=== PATIENT | female | born 1955 | race Caucasian/White ===

== ENCOUNTER 2016-10-18 14:01 | Emergency (ER) | payer OTHER ==
[2016-10-18] MEDS ORDERED: Albuterol-Ipratrop 3 mg / 0.5 (3 ml) UD ONE (14:11)
[2016-10-18 14:18] VITALS: TEMP 98.3
[2016-10-18] MEDS ORDERED: Albuterol-Ipratrop 3 mg / 0.5 (3 ml) UD INH STA ×2 (14:30→14:44)
[2016-10-18 14:41] LABS: BASO % 0.2 % (0.0-2.0); EOS % 0.3 % (0.0-4.0); HEMATOCRIT 37.5 % (34.0-47.0); LYMPH # 1.7 K/uL (1.0-4.3); LYMPH % 19.7 % (20.0-40.0); MEAN CELL VOLUME 84.5 fL (81.0-99.0); MEAN CORPUSCULAR HEMOGLOBIN 28.2 pg (27.0-31.0); MEAN CORPUSCULAR HGB CONC 33.4 g/dL (33.0-37.0); MONO # 0.1 K/uL (0.0-0.8); MONO % 1.4 % (0.0-10.0); RED CELL DISTRIBUTION WIDTH 13.2 % (11.5-14.5); WHITE BLOOD COUNT 8.7 K/uL (4.8-10.8)
[2016-10-18] MEDS ORDERED: Albuterol 0.083% Inhal Sol (2.5 mg/3 mL) UD IH STA ×2 (14:44→14:45)
[2016-10-18] MEDS ORDERED: Albuterol 0.083% Inhal Sol (2.5 mg/3 mL) UD ONE (14:48)
[2016-10-18 14:57] LABS: CHLORIDE 103 mmol/L (98-107); POTASSIUM 3.4 mmol/L (3.6-5.2); SODIUM 144 mmol/L (132-148)
[2016-10-18 14:59] LABS: ALB/GLOB RATIO 1.5 (1.0-2.1); ALKALINE PHOSPHATASE 91 U/L (38-126); AST/SGOT 27 U/L (14-36); BILIRUBIN,TOTAL 0.6 mg/dL (0.2-1.3); CARBON DIOXIDE 25 mmol/L (22-30); GFR AFRICAN-AMERICAN > 60
[2016-10-18 15:00] LABS: ALT/SGPT 24 U/L (9-52); BLOOD UREA NITROGEN 13 mg/dL (7-17); CALCIUM 9.4 mg/dl (8.6-10.4); GLUCOSE,RANDOM 122 mg/dL (65-105)
--- NOTE | 2016-10-18 15:13 | RAD ---
PROCEDURE: CHEST RADIOGRAPH, 1 VIEW HISTORY: SOB COMPARISON: Comparison is made to the previous study dated 01/15/2015 FINDINGS: LUNGS: No significant interval change in the lungs since the previous exam noted. PLEURA: No pneumothorax or pleural fluid seen. CARDIOVASCULAR: Normal. OSSEOUS STRUCTURES: No significant abnormalities. VISUALIZED UPPER ABDOMEN: Normal. OTHER FINDINGS: None. IMPRESSION: No significant interval change.
[2016-10-18] MEDS ORDERED: Potassium Chloride 20 mEq ER Tab PO STA (15:48)
--- NOTE | 2016-10-18 16:10 | C.PDOC ---
History Of Present Illness 61-year-old female with PMHx of Hypercholesterolemia, COPD/Asthma presents to the emergency department with complaints of shortness of breath, wheezing and a productive cough with yellow sputum for the past several days. Patient denies fevers, chest pain, dizziness, palpiations, back pain. Time Seen by Provider: 10/18/16 14:15 Chief Complaint (Nursing): Shortness Of Breath History Per: Patient History/Exam Limitations: no limitations Onset/Duration Of Symptoms: Days Current Symptoms Are (Timing): Still Present Current Respiratory Medications: See Home Med List Severity: Mild Past Medical History Reviewed: Historical Data, Nursing Documentation, Vital Signs Vital Signs: Last Vital Signs Temp 98.3 F 10/18/16 14:15 Pulse 92 H 10/18/16 17:35 Resp 18 10/18/16 17:35 BP 121/60 10/18/16 17:35 Pulse Ox 98 10/18/16 19:08 - Medical History PMH: Asthma, COPD, Hypercholesterolemia - [facility] Procedures PHYSICAL THERAPY [facility] (04/22/14) Family History: States: No Known Family Hx - Social History Hx Tobacco Use: No Hx Alcohol Use: No Hx Substance Use: No - Immunization History Hx Tetanus Toxoid Vaccination: No Hx Influenza Vaccination: No Hx Pneumococcal Vaccination: No Review Of Systems Except As Marked, All Systems Reviewed And Found Negative. Constitutional: Negative for: Fever, Chills Cardiovascular: Negative for: Chest Pain, Palpitations Respiratory: Positive for: Cough, Shortness of Breath, Sputum, Wheezing Gastrointestinal: Negative for: Nausea, Vomiting, Abdominal Pain, Diarrhea Skin: Negative for: Rash Physical Exam - Physical Exam Appears: Well, Non-toxic, No Acute Distress Skin: Warm, Dry, No Rash Head: Normacephalic Eye(s): bilateral: Normal Inspection Oral Mucosa: Moist Neck: Normal, Normal ROM Cardiovascular: Rhythm Regular (Tachycardic) Respiratory: Accessory Muscle Use (mild), No Rales, No Rhonchi, Wheezing ( expiratory B/L), Other (Mild respiratory distress) Gastrointestinal/Abdominal: Normal Exam, Bowel Sounds, Soft, No Tenderness Extremity: Normal ROM, No Pedal Edema, No Calf Tenderness, No Deformity Pulses: Left Dorsalis Pedis: Normal, Right Dorsalis Pedis: Normal Neurological/Psych: Oriented x3 ED Course And Treatment - Laboratory Results Result Diagrams: 10/18/16 14:36 10/18/16 14:36 ECG: Interpreted By Me, Viewed By Me (NSR 97 bpm, normal axis, no acute ST/T wave changes) ECG Interpretation: No Acute Changes Rate From EC O2 Sat by Pulse Oximetry: 98 (RA) - Radiology CXR: Interpreted by Me, Viewed By Me CXR Interpretation: Yes: No Acute Disease Progress Note: Blood work, EKG, Chest X-ray ordered and reviewed. Patient given IV solumedrol and duoneb treatments. Reevaluation Time: 17:20 Reassessment Condition: Improved (Patient reassessed, she states she is feeling much better. On exam, she has good air entry B/L without wheezing or accessory muscle use. CXR, EKG and blood work unremarkable. Patient is well appearing, has normal vitals, and is comfortable being discharged home. She was given Rxs for prednisone, tessalno perles (already has albuterol). Patient instructed to follow up with PMD/clinic in 1-2 days, and she understands she should return to ED if symptoms worsen.) Disposition Counseled Patient/Family Regarding: Studies Performed, Diagnosis, Need For Followup, Rx Given - Disposition Referrals: Graciela Szymanski MD [Medical Doctor] - Disposition: HOME/ ROUTINE Disposition Time: 17:20 Condition: STABLE Additional Instructions: SEGUIMIENTO CON KWON MDICO EN 1-2 TEJEDA USE MEDICAMENTOS SEGN LO DIRIGIDO DEVUELVA A LA JAYSON DE EMERGENCIA SI LOS SNTOMAS EMPEORARAN Prescriptions: Benzonatate [Tessalon Perles] 100 mg PO BID PRN #15 sgl PRN Reason: Cough predniSONE [predniSONE Tab] 40 mg PO DAILY #6 tab Instructions: COPD (Chronic Obstructive Pulmonary Disease) (ED) Print Language: FAROESE - Clinical Impression Clinical Impression: COPD exacerbation - Scribe Statement The provider has reviewed the documentation as recorded by the Caroibjen Cristina All medical record entries made by the Scribe were at my direction and personally dictated by me. I have reviewed the chart and agree that the record accurately reflects my personal performance of the history, physical exam, medical decision making, and the department course for this patient. I have also personally directed, reviewed, and agree with the discharge instructions and disposition.
[2016-10-18] MEDS ORDERED: Potassium Chloride 20 mEq ER Tab PO ONE (16:55)
[2016-10-18 17:35] VITALS: BP 121/60; PULSE 92; RESP 18
[2016-10-18 19:09] VITALS: O2SAT 98
--- NOTE | 2016-10-23 10:12 | CARD ---
APPROVED REPORT EKG Measurement Heart [id number] <Conclusion> Normal sinus rhythm Moderate voltage criteria for LVH, may be normal variant Borderline ECG
== END 2016-10-18 17:36 | disposition home or self-care (01) ==
LOC: C.ER 14:01
DX: J44.1 Chronic obstructive pulmonary disease with (acute) exacerbation (principal)
CPT/HCPCS: 71010; 80053; 82550; 82553; 83880; 84484; 85025; 93005; 96374; 99285; J2930

== ENCOUNTER 2018-02-07 16:04 | Emergency (ER) | payer MEDICAID, OTHER ==
[2018-02-07 16:14] VITALS: TEMP 98.2; O2SAT 98
--- NOTE | 2018-02-07 17:15 | C.PDOC ---
History Of Present Illness 63 y/o female presents to the ER complaining of right shoulder pain which has been present for the past 5 days. Patient states that the pain is aggravated by movement. Patient reports that she has history of wrist tendon surgery 20+ years ago. Since the surgery, she has flexion of 4th finger and decreased sensation. These are not new symptoms , she has no new changes in sensation. Denies having weakness, trauma, CP, and SOB. Time Seen by Provider: 02/07/18 16:31 Chief Complaint (Nursing): Upper Extremity Problem/Injury History Per: Patient History/Exam Limitations: no limitations Onset/Duration Of Symptoms: Days Current Symptoms Are (Timing): Still Present Past Medical History Reviewed: Historical Data, Nursing Documentation, Vital Signs Vital Signs: Last Vital Signs Temp 98.2 F 02/07/18 16:15 Pulse 66 02/07/18 17:50 Resp 18 02/07/18 17:50 BP 150/87 02/07/18 17:50 Pulse Ox 98 02/07/18 17:50 - Medical History PMH: Asthma, COPD, Hypercholesterolemia Other Surgeries: Hx of surgeries - [facility] Procedures [facility] (04/22/14) Family History: States: No Known Family Hx - Social History Hx Tobacco Use: No Hx Alcohol Use: No Hx Substance Use: No - Immunization History Hx Tetanus Toxoid Vaccination: No Hx Influenza Vaccination: No Hx Pneumococcal Vaccination: No Review Of Systems Except As Marked, All Systems Reviewed And Found Negative. Cardiovascular: Negative for: Chest Pain Respiratory: Negative for: Shortness of Breath Musculoskeletal: Positive for: Shoulder Pain (right shoulder pain) Neurological: Negative for: Weakness, Numbness Physical Exam - Physical Exam Appears: Non-toxic, No Acute Distress Skin: Normal Color, Warm, Dry Head: Atraumatic, Normacephalic Eye(s): bilateral: Normal Inspection, EOMI Nose: Normal Oral Mucosa: Moist Neck: Normal ROM, No Midline Cervical Tenderness, No Paracervical Tenderness, Supple, Other (right sided trapezius tenderness) Chest: Symmetrical Cardiovascular: Rhythm Regular Respiratory: Normal Breath Sounds, No Accessory Muscle Use Extremity: Normal ROM, Tenderness (tenderness to anterior and lateral aspect of right shoulder), Capillary Refill (<2 sec), No Swelling Pulses: Left Radial: Normal, Right Radial: Normal Neurological/Psych: Oriented x3, Normal Speech, Normal Motor, Normal Sensation ED Course And Treatment O2 Sat by Pulse Oximetry: 98 (RA) Pulse Ox Interpretation: Normal - Other Rad X-Ray- Right Shoulder X-Ray: Viewed By Me, Read By Radiologist Interpretation: Date of service: 02/07/2018. PROCEDURE: Radiographs of the Right Shoulder. HISTORY: pain. COMPARISON: No prior. FINDINGS: BONES: No fracture. Minimal globular calcification adjacent to the greater tuberosity consistent with calcific tendinitis. JOINTS: Glenohumeral articulation unremarkable. Mild acromioclavicular degenerative arthritis. SOFT TISSUES: Normal. OTHER FINDINGS: None. IMPRESSION: No fracture. Calcific tendinitis. Mild acromioclavicular degenerative arthritis. Progress Note: Patient treated with Flexeril PO and Toradol IM. X -Ray left shoulder ordered and reviewed. Pain has improved. Pt was instructed to follow up with ortho in 1-2 days and RICE. Disposition - Disposition Referrals: Efe Power III, MD [Staff Provider] - Disposition: HOME/ ROUTINE Disposition Time: 17:27 Condition: STABLE Additional Instructions: Vaya a onwak mdico o la clnica en 2-5 moore sin falta, para mas evaluacin. Shiner los medicamentos estuardo indicado. Volver a la tiffanie de emergencia en cualquier momento si los sntomas persisten o empeoran. Prescriptions: Naproxen [Naprosyn] 1 tab PO BID PRN #20 tab PRN Reason: Pain Instructions: Calcific Tendonitis of the Shoulder (DC) Forms: [employer] (Croatian) Print Language: JAMAICAN - Clinical Impression Clinical Impression: Calcific tendinitis of shoulder - PA / UNDER PRESSER / Resident Statement MD/DO has reviewed & agrees with the documentation as recorded. - Scribe Statement The provider has reviewed the documentation as recorded by the iMlo Hinds Provider Attestation All medical record entries made by the Scribe were at my direction and personally dictated by me. I have reviewed the chart and agree that the record accurately reflects my personal performance of the history, physical exam, medical decision making, and the department course for this patient. I have also personally directed, reviewed, and agree with the discharge instructions and disposition.
--- NOTE | 2018-02-07 17:16 | RAD ---
Date of service: 02/07/2018 PROCEDURE: Radiographs of the Right Shoulder HISTORY: pain COMPARISON: No prior. FINDINGS: BONES: No fracture. Minimal globular calcification adjacent to the greater tuberosity consistent with calcific tendinitis. JOINTS: Glenohumeral articulation unremarkable. Mild acromioclavicular degenerative arthritis. SOFT TISSUES: Normal. OTHER FINDINGS: None. IMPRESSION: No fracture. Calcific tendinitis. Mild acromioclavicular degenerative arthritis.
[2018-02-07 17:51] VITALS: BP 150/87; PULSE 66; RESP 18
== END 2018-02-07 17:51 | disposition home or self-care (01) ==
LOC: C.ER 16:04
DX: M75.31 Calcific tendinitis of right shoulder (principal)
CPT/HCPCS: 73030; 96372; 99284; J1885

== ENCOUNTER 2018-05-03 12:17 | Inpatient (IN) | payer MEDICAID ==
[2018-05-03 12:22] VITALS: BMI 33.2
[2018-05-03] MEDS ORDERED: Albuterol-Ipratrop 3 mg / 0.5 (3 ml) UD ONE ×2 (12:32→14:06)
[2018-05-03] MEDS ORDERED: Albuterol-Ipratrop 3 mg / 0.5 (3 ml) UD INH STA ×3 (12:32→13:50)
[2018-05-03] MEDS ORDERED: MethylPREDNISolone 40 mg Vial IVP STA (12:41)
--- NOTE | 2018-05-03 12:43 | C.PDOC ---
History Of Present Illness 63 yo female, hx of asthma/copd, presnets with sob/wheezing. symptoms x 1 day. no fevers, mild cough, no other complaints. Time Seen by Provider: 05/03/18 12:37 Chief Complaint (Nursing): Respiratory Distress Past Medical History Reviewed: Historical Data, Nursing Documentation, Vital Signs Vital Signs: Last Vital Signs Temp 98.6 F 05/03/18 12:22 Pulse 101 H 05/03/18 12:22 Resp 24 05/03/18 12:22 BP 182/93 H 05/03/18 12:22 Pulse Ox 93 L 05/03/18 12:22 - Medical History PMH: Asthma, COPD, Hypercholesterolemia - [facility] Procedures PHYSICAL THERAPY [facility] (04/22/14) Family History: States: Unknown Family Hx - Social History Hx Tobacco Use: No Hx Alcohol Use: No Hx Substance Use: No - Immunization History Hx Tetanus Toxoid Vaccination: No Hx Influenza Vaccination: No Hx Pneumococcal Vaccination: No Review Of Systems Respiratory: Positive for: Cough Physical Exam - Physical Exam Appears: Well, No Acute Distress Skin: Normal Color, Warm, Dry Eye(s): bilateral: Normal Inspection, PERRL, EOMI Nose: Normal Throat: Normal Neck: Normal Cardiovascular: Rhythm Regular Respiratory: Normal Breath Sounds, Rhonchi, Wheezing Gastrointestinal/Abdominal: Normal Exam Back: Normal Inspection Extremity: Normal ROM ED Course And Treatment - Laboratory Results Result Diagrams: 05/03/18 13:23 05/03/18 13:23 ECG: Interpreted By Me, Viewed By Me ECG Rhythm: Sinus Rhythm Interpretation Of ECG: Normal Sinus Rhythm at rate 90bpm. No ST/T wave changes. Rate From EC O2 Sat by Pulse Oximetry: 93 Medical Decision Making Medical Decision Making: asthma - nebs steriod cxr reassess pt obsevered several hours perisitent wheezing accepted bedside by dr jeny luo. Disposition - Disposition Disposition: HOSPITALIZED Disposition Time: 14:50 Condition: STABLE - Clinical Impression Clinical Impression: Exacerbation of asthma Decision To Admit - Pt Status Changed To: Hospital Disposition Of: Inpatient - Admit Certification Admit to Inpatient:: After my assessment, the patient will require hospitalization for at least two midnights. This is because of the severity of symptoms shown, intensity of services needed, and/or the medical risk in this patient being treated as an outpatient. - InPatient: Physician Admission Certification: I certify that this patient requires 2 or more midnights of care for the following reason:: asthma perisstnet wheezing, hypoxic - . Bed Request Type: Telemetry Admitting Physician: Steffany Luo Patient Diagnosis: Exacerbation of asthma
--- NOTE | 2018-05-03 13:23 | RAD ---
Date of service: 05/03/2018 HISTORY: SOB COMPARISON: Comparison chest 10/18/16. TECHNIQUE: Chest PA and lateral FINDINGS: LUNGS: Poor inspiration with low lung volumes, crowded bronchovascular markings and mild bibasilar atelectasis. PLEURA: No significant pleural effusion identified. No pneumothorax apparent. CARDIOVASCULAR: Normal. Mild aortic atherosclerotic calcification present. Heart size is upper limits of normal in size. No pulmonary vascular congestion. OSSEOUS STRUCTURES: Mild multilevel degenerative spondylosis of the thoracic spine VISUALIZED UPPER ABDOMEN: Normal. OTHER FINDINGS: None. IMPRESSION: Poor inspiration with low lung volumes, crowded bronchovascular markings and mild bibasilar atelectasis.
[2018-05-03 13:33] LABS: BASO % 0.5 % (0.0-2.0); EOS # 0.2 K/uL (0.0-0.7); EOS % 4.5 % (0.0-4.0); HEMOGLOBIN 11.3 g/dL (11.0-16.0); LYMPH # 2.2 K/uL (1.0-4.3); LYMPH % 50.5 % (20.0-40.0); MEAN CELL VOLUME 85.5 fL (81.0-99.0); MEAN CORPUSCULAR HEMOGLOBIN 28.8 pg (27.0-31.0); MEAN CORPUSCULAR HGB CONC 33.7 g/dL (33.0-37.0); MEAN PLATELET VOLUME 8.1 fL (7.2-11.7); MONO # 0.4 K/uL (0.0-0.8); MONO % 9.2 % (0.0-10.0); NEUT # 1.5 K/uL (1.8-7.0); NEUT % 35.3 % (50.0-75.0); RBC 3.93 Mil/uL (3.80-5.20); RED CELL DISTRIBUTION WIDTH 13.4 % (11.5-14.5); WHITE BLOOD COUNT 4.3 K/uL (4.8-10.8)
[2018-05-03 13:38] LABS: PROTHROMBIN TIME 11.2 SECONDS (9.7-12.2)
[2018-05-03 13:46] LABS: ALB/GLOB RATIO 1.4 (1.0-2.1); ALBUMIN 4.1 g/dL (3.5-5.0); ALT/SGPT 26 U/L (9-52); AST/SGOT 25 U/L (14-36); BLOOD UREA NITROGEN 12 mg/dL (7-17); CALCIUM 9.1 mg/dl (8.6-10.4); GFR NON-AFRICAN AMERICAN > 60
[2018-05-03] MEDS ORDERED: Potassium Chloride 20 mEq ER Tab PO STA (13:47)
[2018-05-03] MEDS ORDERED: Potassium Chloride 10 mEq ER Tab PO ONE ×2 (14:07→14:09)
[2018-05-03 15:01] VITALS: RESP 20
[2018-05-03] MEDS ORDERED: guaiFENesin 100 mg/5 ml Syrup UD PO PRN (17:14)
[2018-05-03] MEDS: MethylPREDNISolone 40 mg Vial IVP SCH (17:33)
[2018-05-03] MEDS ORDERED: Oxycodone/Acetaminophen 5/325 mg Tab PO PRN (18:35)
[2018-05-03] MEDS ORDERED: Naproxen 275 mg Tab PO PRN (18:35)
--- NOTE | 2018-05-03 18:35 | CP.PCM.PN ---
Subjective - Date & Time of Evaluation Date of Evaluation: 05/03/18 Objective - Vital Signs/Intake and Output Vital Signs (last 24 hours): Temp Pulse Resp BP Pulse Ox 98 F 91 H 20 136/4 L 93 L 05/03/18 15:50 05/03/18 18:00 05/03/18 15:50 05/03/18 15:50 05/03/18 16:08 - Medications Medications: Current Medications Albuterol/Ipratropium (Duoneb 3 Mg/0.5 Mg (3 Ml) Ud) 3 ml INH RQ6 [facility] Guaifenesin (Robitussin) 100 mg PO Q4H PRN PRN Reason: Cough Heparin Sodium (Porcine) (Heparin) 5,000 units SC Q12 [facility] Home Med (Fluticasone/Salmeterol 500/50 [Advair Diskus 500/50]) 1 puff INH RQ12 [facility] Methylprednisolone (Solu-Medrol) 40 mg IVP Q8H [facility] Last Admin: 05/03/18 17:33 Dose: 40 mg Montelukast Sodium (Singulair) 10 mg PO DAILY [facility] Last Admin: 05/03/18 17:33 Dose: 10 mg Rosuvastatin Calcium (Crestor) 20 mg PO HS [facility] - Labs Labs: 05/03/18 13:23 05/03/18 13:23 PT 11.2 SECONDS (9.7-12.2) 05/03/18 13:23 INR 1.0 05/03/18 13:23 APTT 31 SECONDS (21-34) 05/03/18 13:23
[2018-05-03] MEDS: Albuterol-Ipratrop 3 mg / 0.5 (3 ml) UD INH SCH (19:28)
[2018-05-03] MEDS: Azithromycin 500 MG in Sodium Chloride 0.9% 250 ML IVPB SCH (19:35)
[2018-05-03] MEDS ORDERED: SALMETEROL INH SCH (20:00)
[2018-05-03] MEDS ORDERED: FLUTICASONE INH SCH (20:00)
[2018-05-03] MEDS ORDERED: Albuterol-Ipratrop 3 mg / 0.5 (3 ml) UD INH SCH (20:00)
[2018-05-03] MEDS ORDERED: MethylPREDNISolone 40 mg Vial IVP SCH (22:00)
[2018-05-04] MEDS: MethylPREDNISolone 40 mg Vial IVP SCH ×3 (00:16→17:48)
[2018-05-04] MEDS: Albuterol-Ipratrop 3 mg / 0.5 (3 ml) UD INH SCH ×4 (01:13→19:51)
[2018-05-04 07:19] LABS: BASO % 0.2 % (0.0-2.0); HEMOGLOBIN 11.7 g/dL (11.0-16.0); LYMPH # 1.5 K/uL (1.0-4.3); LYMPH % 21.4 % (20.0-40.0); MEAN CELL VOLUME 85.1 fL (81.0-99.0); MEAN PLATELET VOLUME 8.6 fL (7.2-11.7); MONO # 0.1 K/uL (0.0-0.8); MONO % 2.1 % (0.0-10.0); NEUT # 5.2 K/uL (1.8-7.0); NEUT % 76.3 % (50.0-75.0); RBC 4.04 Mil/uL (3.80-5.20); RED CELL DISTRIBUTION WIDTH 13.7 % (11.5-14.5)
[2018-05-04 07:26] LABS: WHITE BLOOD COUNT 6.8 K/uL (4.8-10.8)
[2018-05-04 07:47] LABS: ALB/GLOB RATIO 1.3 (1.0-2.1); ALT/SGPT 17 U/L (9-52); AST/SGOT 23 U/L (14-36); BLOOD UREA NITROGEN 14 mg/dL (7-17); CALCIUM 9.2 mg/dl (8.6-10.4); GFR NON-AFRICAN AMERICAN > 60
--- NOTE | 2018-05-04 15:07 | CP.PCM.HP ---
Past Patient History - Infectious Disease Hx of Infectious Diseases: None - Past Medical History & Family History Past Medical History?: Yes - Past Social History Smoking Status: Never Smoked - CARDIAC Hx Hypercholesterolemia: Yes - PULMONARY Hx Asthma: Yes Hx Chronic Obstructive Pulmonary Disease (COPD): Yes - NEUROLOGICAL Hx Neurological Disorder: No - HEENT Hx HEENT Problems: No - RENAL Hx Chronic Kidney Disease: No - ENDOCRINE/METABOLIC Hx Endocrine Disorders: No - HEMATOLOGICAL/ONCOLOGICAL Hx Blood Disorders: No - INTEGUMENTARY Hx Dermatological Problems: No - MUSCULOSKELETAL/RHEUMATOLOGICAL Hx Musculoskeletal Disorders: Yes Hx Arthritis: Yes Hx Falls: No - GASTROINTESTINAL Hx Gastrointestinal Disorders: No - GENITOURINARY/GYNECOLOGICAL Hx Genitourinary Disorders: No - PSYCHIATRIC Hx Substance Use: No - SURGICAL HISTORY Hx Surgeries: Yes Other/Comment: right hand/arm tendon surgery - ANESTHESIA Hx Anesthesia: Yes Hx Anesthesia Reactions: No Hx Malignant Hyperthermia: No Meds Allergies/Adverse Reactions: Allergies Allergy/AdvReac Type Severity Reaction Status Date / Time No Known Allergies Allergy Verified 02/07/18 16:14 Physical Exam - Constitutional Appears: Well - Head Exam Head Exam: ATRAUMATIC, NORMAL INSPECTION, NORMOCEPHALIC - Eye Exam Eye Exam: EOMI, Normal appearance, PERRL Pupil Exam: NORMAL ACCOMODATION, PERRL - ENT Exam ENT Exam: Mucous Membranes Moist, Normal Exam - Neck Exam Neck exam: Positive for: Normal Inspection - Respiratory Exam Respiratory Exam: Decreased Breath Sounds - Cardiovascular Exam Cardiovascular Exam: REGULAR RHYTHM, +S1, +S2 - GI/Abdominal Exam GI & Abdominal Exam: Diminished Bowel Sounds, Soft - Rectal Exam Rectal Exam: Deferred Results - Vital Signs Recent Vital Signs: Last Vital Signs Temp 97.4 F L 05/04/18 07:38 Pulse 88 05/04/18 12:35 Resp 20 05/04/18 07:38 BP 129/72 05/04/18 07:38 Pulse Ox 96 05/04/18 07:38 - Labs Result Diagrams: 05/04/18 07:11 05/04/18 07:11 Labs: Laboratory Results - last 24 hr 05/04/18 05/04/18 07:11 07:11 WBC 6.8 D RBC 4.04 Hgb 11.7 Hct 34.4 MCV 85.1 MCH 29.0 MCHC 34.0 RDW 13.7 Plt Count 161 MPV 8.6 Neut % (Auto) 76.3 H Lymph % (Auto) 21.4 Briscoe % (Auto) 2.1 Eos % (Auto) 0.0 Baso % (Auto) 0.2 Neut # (Auto) 5.2 Lymph # (Auto) 1.5 [place]iscoe # (Auto) 0.1 Eos # (Auto) 0.0 Baso # (Auto) 0.0 Sodium 142 Potassium 4.2 Chloride 105 Carbon Dioxide 24 Anion Gap 17 BUN 14 Creatinine 0.6 L Est GFR ( Amer) > 60 Est GFR (Non-Af Amer) > 60 Random Glucose 150 H Calcium 9.2 Total Bilirubin 0.3 AST 23 ALT 17 Alkaline Phosphatase 61 Total Protein 7.1 Albumin 4.0 Globulin 3.1 Albumin/Globulin Ratio 1.3
[2018-05-04] MEDS: Azithromycin 500 MG in Sodium Chloride 0.9% 250 ML IVPB SCH (19:25)
[2018-05-05] MEDS: MethylPREDNISolone 40 mg Vial IVP SCH ×3 (00:26→17:39)
[2018-05-05] MEDS: Albuterol-Ipratrop 3 mg / 0.5 (3 ml) UD INH SCH ×4 (01:35→20:48)
--- NOTE | 2018-05-05 12:40 | CP.PCM.PN ---
Subjective - Date & Time of Evaluation Date of Evaluation: 05/05/18 Time of Evaluation: 08:30 - Subjective Subjective: clinically same Objective - Vital Signs/Intake and Output Vital Signs (last 24 hours): Temp Pulse Resp BP Pulse Ox 97.9 F 71 20 128/72 96 05/05/18 07:55 05/05/18 12:16 05/05/18 07:55 05/05/18 07:55 05/05/18 07:55 - Medications Medications: Current Medications Albuterol/Ipratropium (Duoneb 3 Mg/0.5 Mg (3 Ml) Ud) 3 ml INH RQ6 [facility] Last Admin: 05/05/18 08:12 Dose: Not Given Benzonatate (Tessalon Perles) 100 mg PO BID PRN PRN Reason: Cough Diazepam (Valium) 2 mg PO TID [facility] Last Admin: 05/05/18 09:21 Dose: 2 mg Guaifenesin (Robitussin) 100 mg PO Q4H PRN PRN Reason: Cough Heparin Sodium (Porcine) (Heparin) 5,000 units SC Q12 [facility] Last Admin: 05/05/18 09:22 Dose: 5,000 units Home Med (Fluticasone/Salmeterol 500/50 [Advair Diskus 500/50]) 1 puff INH RQ12 [facility] Ceftriaxone Sodium 1 gm/ (Sodium Chloride) 100 mls @ 100 mls/hr IVPB Q24H [facility]; Protocol Last Admin: 05/04/18 19:25 Dose: 100 mls/hr Azithromycin 500 mg/ Sodium (Chloride) 250 mls @ 250 mls/hr IVPB Q24H [facility]; Protocol Last Admin: 05/04/18 19:25 Dose: 250 mls/hr Methylprednisolone (Solu-Medrol) 40 mg IVP Q8H [facility] Last Admin: 05/05/18 09:22 Dose: 40 mg Montelukast Sodium (Singulair) 10 mg PO DAILY [facility] Last Admin: 05/05/18 09:22 Dose: 10 mg Naproxen (Anaprox) 275 mg PO BID PRN PRN Reason: Pain, Mild (1-3) Oxycodone/Acetaminophen (Percocet 5/325 Mg Tab) 1 tab PO QID PRN PRN Reason: Pain, moderate (4-7) Stop: 05/06/18 18:36 Rosuvastatin Calcium (Crestor) 20 mg PO HS [facility] Last Admin: 05/04/18 21:37 Dose: 20 mg - Labs Labs: 05/04/18 07:11 05/04/18 07:11 PT 11.2 SECONDS (9.7-12.2) 05/03/18 13:23 INR 1.0 05/03/18 13:23 APTT 31 SECONDS (21-34) 05/03/18 13:23 - Constitutional Appears: Well - Head Exam Head Exam: ATRAUMATIC, NORMAL INSPECTION, NORMOCEPHALIC - Eye Exam Eye Exam: EOMI, Normal appearance, PERRL Pupil Exam: NORMAL ACCOMODATION, PERRL - ENT Exam ENT Exam: Mucous Membranes Moist, Normal Exam - Neck Exam Neck Exam: Full ROM, Normal Inspection. absent: Lymphadenopathy - Respiratory Exam Respiratory Exam: Decreased Breath Sounds - Cardiovascular Exam Cardiovascular Exam: REGULAR RHYTHM, +S1, +S2 - GI/Abdominal Exam GI & Abdominal Exam: Soft, Diminished Bowel Sounds - Rectal Exam Rectal Exam: Deferred
[2018-05-05] MEDS: Azithromycin 500 MG in Sodium Chloride 0.9% 250 ML IVPB SCH (19:26)
[2018-05-06] MEDS: MethylPREDNISolone 40 mg Vial IVP SCH ×2 (00:15→09:36)
[2018-05-06] MEDS: Albuterol-Ipratrop 3 mg / 0.5 (3 ml) UD INH SCH ×3 (01:50→13:51)
[2018-05-06 08:48] VITALS: TEMP 97.9
--- NOTE | 2018-05-06 13:46 | CP.PCM.PN ---
Subjective - Date & Time of Evaluation Date of Evaluation: 05/06/18 Time of Evaluation: 13:46 - Subjective Subjective: PATIENT SEEN AND EXAMINED AT THE BEDSIDE Objective - Vital Signs/Intake and Output Vital Signs (last 24 hours): Temp Pulse Resp BP Pulse Ox 97.9 F 61 20 128/70 95 05/06/18 08:00 05/06/18 08:03 05/06/18 08:00 05/06/18 08:00 05/06/18 08:00 - Medications Medications: Current Medications Albuterol/Ipratropium (Duoneb 3 Mg/0.5 Mg (3 Ml) Ud) 3 ml INH RQ6 [facility] Last Admin: 05/06/18 08:36 Dose: Not Given Benzonatate (Tessalon Perles) 100 mg PO BID PRN PRN Reason: Cough Diazepam (Valium) 2 mg PO TID [facility] Last Admin: 05/06/18 09:36 Dose: 2 mg Guaifenesin (Robitussin) 100 mg PO Q4H PRN PRN Reason: Cough Heparin Sodium (Porcine) (Heparin) 5,000 units SC Q12 [facility] Last Admin: 05/06/18 09:36 Dose: Not Given Home Med (Fluticasone/Salmeterol 500/50 [Advair Diskus 500/50]) 1 puff INH RQ12 [facility] Ceftriaxone Sodium 1 gm/ (Sodium Chloride) 100 mls @ 100 mls/hr IVPB Q24H [facility]; Protocol Last Admin: 05/05/18 19:27 Dose: 100 mls/hr Azithromycin 500 mg/ Sodium (Chloride) 250 mls @ 250 mls/hr IVPB Q24H [facility]; Protocol Last Admin: 05/05/18 19:26 Dose: 250 mls/hr Methylprednisolone (Solu-Medrol) 40 mg IVP Q12H [facility] Montelukast Sodium (Singulair) 10 mg PO DAILY [facility] Last Admin: 05/06/18 09:36 Dose: 10 mg Naproxen (Anaprox) 275 mg PO BID PRN PRN Reason: Pain, Mild (1-3) Oxycodone/Acetaminophen (Percocet 5/325 Mg Tab) 1 tab PO QID PRN PRN Reason: Pain, moderate (4-7) Stop: 05/06/18 18:36 Rosuvastatin Calcium (Crestor) 20 mg PO HS [facility] Last Admin: 05/05/18 21:10 Dose: 20 mg - Labs Labs: 05/04/18 07:11 05/04/18 07:11 PT 11.2 SECONDS (9.7-12.2) 05/03/18 13:23 INR 1.0 05/03/18 13:23 APTT 31 SECONDS (21-34) 05/03/18 13:23 Assessment and Plan - Assessment and Plan (Free Text) Assessment: FOLLOW UP WITH DR Guerita OWEN IN HIS OFFICE ----CALL FOR APPOINTMENT CONTINUE HOME MEDICATION NEW PRESCRIPTION GIVEN MEDROL DOSE PACK BY MOUTH DAILY DIRECTED AUGMENTIN PO DAILY FOR 5 DAYS FOLRASTOR ONE TAB BY MOUTH DAILY FOR 5 DAYS ACTIVITY TOLERATED CALL DR Guerita OWEN OR GO TO THE EMERGENCY ROOM IF SYMPTOM RETURN OR WORSENING
[2018-05-06] MEDS ORDERED: MethylPREDNISolone 40 mg Vial IVP SCH (17:00)
--- NOTE | 2018-05-06 22:55 | CARD ---
APPROVED REPORT Date of service: 05/04/2018 EKG Measurement Heart [id number] <Conclusion> Normal sinus rhythm Normal ECG
[2018-05-07 00:35] VITALS: BP 120/69; PULSE 69; O2SAT 97
[2018-05-07] MEDS ORDERED: Fluticasone-Vilanterol 200/25mcg Diskus INH SCH (08:00)
--- NOTE | 2018-05-07 22:18 | CARD ---
APPROVED REPORT Date of service: 05/03/2018 EKG Measurement Heart [id number] LA [id number] [id number] <Conclusion> Normal sinus rhythm Minimal voltage criteria for LVH, may be normal variant Borderline ECG
== END 2018-05-06 16:04 | disposition home or self-care (01) | DRG 141 ==
LOC: C.ER 12:17 → C.9E 14:49 → C.5S 15:07
PROVIDERS: ADMIT Internal Medicine Nephrology; ATTEND Internal Medicine Nephrology
DX: J45.901 Unspecified asthma with (acute) exacerbation (principal); J44.9 Chronic obstructive pulmonary disease, unspecified; E78.00 Pure hypercholesterolemia, unspecified